=== PATIENT | male | born 1975 | race Caucasian/White ===

== ENCOUNTER → 2018-07-10 15:40 | Outpatient (CLI) | payer MEDICAID, SELFPAY ==
[2018-07-09 12:04] LABS: Absolute Neutrophil Count 5.7 X10^3/uL (2.0-7.7); Basophil# 0.04 X10^3/uL; Basophil% 0.4 % (0-1); Eosinophil# 0.13 X10^3/uL; Eosinophils% 1.4 % (0-5); Hematocrit 42.7 % (40-54); Hemoglobin 14.4 g/dl (13.0-16.5); Lymphocyte % 24.4 % (19-41); Mean Corp Hgb Conc 33.7 g/gl (32-36); Mean Corpuscular Hgb 31.3 pg (27.0-32.0); Mean Corpuscular Volume 92.8 fL (80-94); Mean Platelet Vol. 9.6 fl (6.2-12.0); Monocyte# 0.94 X10^3/uL; Monocyte% 10.4 % (0-10); Neutrophil # 5.67 X10^3/uL (2.7-7.7); Neutrophil % 63.2 % (47-70); Platelet Count 219 K/mm3 (150-450); RBC Distribution Width CV 12.9 % (11.6-14.6); RBC Distribution Width SD 43.2 fl (35.1-43.9)
[2018-07-09 12:06] LABS: POSITIVE COUNT NO; POSITIVE DIFFERENTIAL NO; POSITIVE MORPHOLOGY NO
[2018-07-09 12:35] LABS: Anion Gap 8 (5-15); BUN 14 mg/dL (7-18); Chloride 104 mmol/L (98-107); Cholesterol 206 mg/dL (200); Creatinine, Serum 0.98 mg/dL (0.70-1.30); EST Glomerular Filtration Rate 90 mL/min (>60); Est Glom Filt Rate - Afr Amer 109 mL/min (>60); Glucose 88 mg/dL (74-106); High Density Lipoprotein 39 mg/dL; Potassium 4.3 mmol/L (3.5-5.1); Sodium Level 142 mmol/L (136-145); Triglycerides 145 mg/dL; Very Low Density Lipoprotein 29 mg/dL (5-40)
[2018-07-12 14:07] LABS: B. henselae IgG Negative titer (Neg:<1:320); B. henselae IgM Negative titer (Neg:<1:100); B. quintana IgG Negative titer (Neg:<1:320)
[2018-07-13 09:12] LABS: B. quintana IgM Negative titer (Neg:<1:100)
== END ==
PROVIDERS: Family Provider Nurse Practitioner Family; PCP Nurse Practitioner Family; Visit Provider Ophthalmology
DX: H47.10 Unspecified papilledema (principal)
CPT/HCPCS: 36415; 70553; 80051; 80061; 82565; 82947; 84520; 85025; 86611; A9585

== ENCOUNTER → 2018-11-20 10:36 | Outpatient (CLI) | payer MEDICAID, SELFPAY ==
[2016-01-12 09:06] VITALS: BMI 37.3
--- NOTE | 2018-11-20 10:55 | RAD_ITS ---
STUDY: X-RAY CHEST REASON FOR EXAM: Male, 43 years old. Pre-op TECHNIQUE: PA and lateral views of the chest. COMPARISON: None. FINDINGS: The lungs are clear and expanded. There is no demonstrated pleural abnormality. Normal size heart. Normal mediastinum and mehdi. Normal visualized pulmonary arteries. Normal visualized aortic arch and descending thoracic aorta. Normal visualized thoracic spine. Normal visualized ribs, clavicles, and shoulders. There is no demonstrated abnormality of the visualized soft tissue structures of the upper abdomen. RAD/Chest PA and Lateral IMPRESSION: Normal x-ray examination of the chest. Electronically Signed: Nick Golden MD at 22:23 EST , Service support ,
--- NOTE | 2018-11-20 11:02 | EKG12_ITS ---
Test Reason : PREOP Blood Pressure : / mmHG Vent. Rate : 075 BPM Atrial Rate : 075 BPM P-R Int : 134 ms QRS Dur : 100 ms QT Int : 398 ms P-R-T Axes : 060 030 070 degrees QTc Int : 444 ms Sinus rhythm with sinus arrhythmia with occasional Premature ventricular complexes Otherwise normal ECG Confirmed by ERIN HOWARD, QUITA ([id number]), features editor SAE IRWIN ([id number]) on 11/21/2018 3:56:53 PM Referred By: Abram Cardoso Confirmed By:QUITA KHAN MD
[2018-11-20 11:37] LABS: Absolute Lymphocyte Count 2.23 X10^3/ul (0.83-4.51); Absolute Neutrophil Count 4.6 X10^3/uL (2.0-7.7); Basophil# 0.05 X10^3/uL; Basophil% 0.6 % (0-1); Eosinophil# 0.58 X10^3/uL; Eosinophils% 7.1 % (0-5); Hematocrit 47.4 % (40-54); Hemoglobin 16.4 g/dl (13.0-16.5); Lymphocyte # 2.23 X10^3/ul (4.0); Lymphocyte % 27.3 % (19-41); Mean Corp Hgb Conc 34.6 g/gl (32-36); Mean Corpuscular Hgb 31.8 pg (27.0-32.0); Mean Corpuscular Volume 91.9 fL (80-94); Mean Platelet Vol. 10.9 fl (6.2-12.0); Monocyte# 0.66 X10^3/uL; Monocyte% 8.1 % (0-10); Neutrophil # 4.62 X10^3/uL (2.7-7.7); Neutrophil % 56.7 % (47-70); POSITIVE COUNT NO; POSITIVE DIFFERENTIAL NO; POSITIVE MORPHOLOGY NO; Platelet Count 205 K/mm3 (150-450); RBC Distribution Width CV 12.9 % (11.6-14.6); RBC Distribution Width SD 42.7 fl (35.1-43.9); Red Blood Count 5.16 M/mm3 (4.6-6.2); White Blood Count 8.2 K/mm3 (4.4-11.0)
[2018-11-20 12:20] LABS: ALB/GLOB Ratio 1.1 RATIO (0.9-2.4); AST(SGOT) 14 U/L (15-37); Alanine Aminotransfer ALT/SGPT 29 U/L (16-61); Albumin, Serum 4.1 g/dL (3.2-5.0); Alkaline Phosphatase 66 U/L (45-117); Anion Gap 5 (5-15); BUN 14 mg/dL (7-18); BUN/Creat Ratio 14.3 RATIO (10-20); Calcium,Total 8.8 mg/dL (8.5-10.1); Chloride 105 mmol/L (98-107); Creatinine, Serum 0.98 mg/dL (0.70-1.30); EST Glomerular Filtration Rate 90 mL/min (>60); Est Glom Filt Rate - Afr Amer 109 mL/min (>60); Globulin 3.9 g/dL (2.2-4.2); Glucose 92 mg/dL (74-106); Potassium 4.3 mmol/L (3.5-5.1); Sodium Level 140 mmol/L (136-145)
--- OUTSIDE RECORDS SUMMARY | 2019-01-25 05:51 | XMS RPT_ITS ---
:1975 External Reference #:[id number] Author Organization OH[facility] Care Team Providers Name Role Phone Jean Pike Attending Unavailable Jean Pike Referring Unavailable Omar Munoz TIMBER INSPECTOR-C Primary Care Unavailable Pilo Cardoso Attending Unavailable Pilo Cardoso Referring Unavailable Omar Munoz TIMBER INSPECTOR-C Primary Care Unavailable LEIGHTON ANTOINE Referring Unavailable LEIGHTON ANTOINE Attending Unavailable PILO CARDOSO A Attending Unavailable PCP, NONE Referring Unavailable RAISA CARDOSOY A Attending Unavailable TALHA, PILO A Referring Unavailable TALHA, PILO A Admitting Unavailable TALHA PILO A Attending Unavailable PROBLEMS PROBLEMS DATE TYPE CONDITION / CODE ATTENDING STATUS SOURCE 11/15/2018 Unknown Incomplete rotator PILO CARDOSO Active [facility] cuff tear or [facility] rupture of right System shoulder, not Repository specified as traumatic / M75.111(ICD-10) 11/14/2018 Unknown Pain in right PILO CARDOSO Active [facility] shoulder / [facility] M25.511(ICD-10) System Repository 11/14/2018 Unknown Encounter for other PILO CARDOSO Active [facility] preprocedural [facility] examination / System Z01.818(ICD-10) Repository 11/11/2018 Active Pain, unspecified / NA Active [facility] R52(ICD-10) Other [place] Repository PROCEDURES PROCEDURES No Procedure Records FoundRESULTS RESULTS 12 LEAD ELECTROCARDIOGRAM Observed: 11/21/2018 Status: F Source: [place] 3:57 PM [facility] Cardiovascular Services [address] [place] [address] 12 Lead EKG 11/20/18 1108 MR#: [id number] Acct: [id number] Name: ESTEFANIA SURESH Rep #: [id number] : 1975 43 From: Piotr Khan MD Attending Dr: Pilo Cardoso DO Status: REG CLI Ordering Dr: Pilo Cardoso DO Date: 11/20/18 Location: LAB Sex: M C Admitted: Test Reason : PREOP Blood Pressure : / mmHG Vent. Rate : 075 BPM Atrial Rate : 075 BPM P-R Int : 134 ms QRS Dur : 100 ms QT Int : 398 ms P-R-T Axes : 060 030 070 degrees QTc Int : 444 ms Sinus rhythm with sinus arrhythmia with occasional Premature ventricular complexes Otherwise normal ECG Confirmed by ERIN HOWARD, PIOTR ([id number]), telegraph editor SAE IRWIN ([id number]) on 11/21/2018 3:56:53 PM Referred By: Pilo Cardoso Confirmed By:PIOTR KHAN MD 11/21/18 1556 Date Piotr Khan MD CC: TIMBER INSPECTOR-C Omar Munoz; Pilo Cardoso DO Signed CHEST PA AND LATERAL Observed: 11/20/2018 Status: F Source: [place] 10:51 AM [facility] Imaging Services [address] [place] [address] Chest PA and Lateral MR#: [id number] Acct: [id number] Name: ESTEFANIA SURESH Rep #: [id number] : 1975 M 43 From: Nick Golden MD PCP: Omar Munoz, TIMBER INSPECTOR-C Status: REG CLI Study: Chest PA and Lateral Date of Exam: 11/20/18 Exam# [id number] Ordering Dr: Pilo Cardoso DO STUDY: X-RAY CHEST REASON FOR EXAM: Male, 43 years old. Pre-op TECHNIQUE: PA and lateral views of the chest. COMPARISON: None. FINDINGS: The lungs are clear and expanded. There is no demonstrated pleural abnormality. Normal size heart. Normal mediastinum and mehdi. Normal visualized pulmonary arteries. Normal visualized aortic arch and descending thoracic aorta. Normal visualized thoracic spine. Normal visualized ribs, clavicles, and shoulders. There is no demonstrated abnormality of the visualized soft tissue structures of the upper abdomen. RAD/Chest PA and Lateral IMPRESSION: Normal x-ray examination of the chest. Electronically Signed: Nick Golden MD at 22:23 EST , Service support , CC: JASON Munoz; Pilo Cardoso DO Plumbing Assembler Installer: Signed CBC W/DIFF, AUTOMATED Collected: 11/20/2018 Status: F Source: [place] 10:43 AM [facility] REPOSITORY TYPE CODE TESTS RESULT OUT OF RANGE REFERENCE UNITS LAB L100.1000 4.4-11.0 K/mm3 Normal WBC 8.2 LAB L100.1200 4.6-6.2 M/mm3 Normal RBC 5.16 LAB L100.1300 13.0-16.5 g/dl Normal HGB 16.4 LAB L100.1400 40-54 % Normal HCT 47.4 LAB L100.1500 80-94 fL Normal MCV 91.9 LAB L100.1600 27.0-32.0 pg Normal MCH 31.8 LAB L100.1700 32-36 g/gl Normal MCHC 34.6 LAB L100.1810 11.6-14.6 % Normal RDW CV 12.9 LAB L100.1820 35.1-43.9 fl Normal RDW SD 42.7 LAB L100.1900 150-450 K/mm3 Normal PLT 205 LAB L100.2000 6.2-12.0 fl Normal MPV 10.9 LAB L100.2100 47-70 % Normal NEUT% 56.7 LAB L100.2200 19-41 % Normal LY% 27.3 LAB L100.2300 0-10 % Normal MONO% 8.1 LAB L100.2400 0-5 % High EO% 7.1 LAB L100.2500 0-1 % Normal BASO% 0.6 LAB L100.2550 0.0-0.9 % Normal IM GRAN % 0.200 Result Comment: IG% - Immature Granulocytes (promyelocytes, myelocytes and metamyelocytes) > 1% indicates that a LEFT SHIFT is Present. LAB L100.2620 2.0-7.7 X10 3/uL Normal Absolute Neut 4.6 LAB L100.2720 0.83-4.51 X10 3/ul Normal Absolute Lymph 2.23 Performed By: #### L100.0100 #### [facility] [address] [place], [address] COMPREHENSIVE METABOLIC Collected: 11/20/2018 Status: F Source: [facility] 10:43 AM [facility] REPOSITORY TYPE CODE TESTS RESULT OUT OF RANGE REFERENCE UNITS LAB L501.0100 74-106 mg/dL Normal GLU 92 Result Comment: Please note revised GLUCOSE reference range effective 2017. LAB L501.1000 7-18 mg/dL Normal BUN 14 LAB L501.1100 0.70-1.30 mg/dL Normal CREAT,SERUM 0.98 Result Comment: The validity of the calculated GFR AND GFRAA in patients over 70 years has not been determined. Clinical correlation is essential. LAB L501.1110 >60 mL/min Normal EST GFR 90 Result Comment: Non- GFR Calc LAB L501.1115 >60 mL/min Normal EST GFR - AA 109 Result Comment: GFR Calc LAB L501.1300 10-20 RATIO Normal BUN/CRE 14.3 LAB L501.1500 6.4-8.2 g/dL T Normal PROT 8.0 LAB L501.1800 3.2-5.0 g/dL Normal ALB 4.1 LAB L501.1950 2.2-4.2 g/dL Normal GLOB 3.9 LAB L501.2000 0.9-2.4 RATIO Normal A/G 1.1 LAB L501.2200 8.5-10.1 mg/dL CA Normal 8.8 LAB L501.4100 15-37 U/L Low AST 14 LAB L501.4305 45-117 U/L Normal ALK P 66 LAB L501.4405 16-61 U/L Normal ALT 29 LAB L501.4600 0.20-1.00 mg/dL T Normal BILI 0.60 LAB L501.5300 136-145 mmol/L NA Normal 140 LAB L501.5600 3.5-5.1 mmol/L K Normal 4.3 LAB L501.5900 98-107 mmol/L CL Normal 105 LAB L501.6100 21.0-32.0 mmol/L Normal CO2 30.0 LAB L501.6200 5-15 Normal GAP 5 Performed By: #### L500.4050 #### [facility] [address] [place], [address] XR SHOULDER RIGHT MIN Observed: 11/14/2018 Status: F Source: [facility] 2 VIEWS (ROUTINE) 10:42 AM [facility] EXAMINATION: FOUR XRAY VIEWS OF THE RIGHT SHOULDER 11/14/2018 10:42 am COMPARISON: None. HISTORY: Pain in right shoulder: Right shoulder pain FINDINGS: Glenohumeral joint is normally aligned. No evidence of acute fracture or dislocation. No abnormal periarticular calcifications. The AC joint is unremarkable in appearance. Visualized lung is unremarkable. IMPRESSION: No acute abnormality. PROGRESS Observed: 11/11/2018 Status: COMPLETED Source: [place] 3:05 PM [facility] [place] REPOSITORY HNO ID: [id number] Author: Leighton Antoine Service: (none) Author Type: Physician Type: Progress Notes Filed: 11/11/2018 3:09 PM Note Text: ORTHOPEDIC CONSULT Leighton Antoine MD [facility] Department of Orthopedics Consultation requested by Dr. Felisa Driver MD for an opinion regarding right shoulder pain and weakness. My final recommendations will be communicated back to the requesting physician by way of shared medical record or letter via US mail 43-year-old male here today regarding right shoulder pain it's been going on now for the last 2 years. He was initially managed by an outside orthopedic group and referred here for definitive care. He underwent MRI examination in February 2018. Findings were consistent with a near full-thickness rotator cuff tear. The patient received 3 cortisone injections the last of which was June. He's not done any physical therapy. Reviewing the patient was being considered for surgery but the insurance coverage changed the patient was referred here. 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 Current Outpatient Prescriptions: omeprazole (PRILOSEC) 20 mg capsule TAKE ONE CAPSULE BY MOUTH ONCE DAILY varenicline (CHANTIX CONTINUING MONTH BOX) 1 mg tablet Take 1 tablet by mouth twice daily. ranitidine (ZANTAC) 75 mg tablet Take 75 mg by mouth twice daily as needed. No current facility-administered medications for this visit. There is no problem list on file for this patient. No past surgical history on file. PAST MEDICAL HISTORY Diagnosis Date - Tendinitis FAMILY HISTORY Problem Relation Age of Onset - Diabetes Mother - other (grave's disease) Mother Social History Substance Use Topics - Smoking status: Current Every Day Smoker Packs/day: 1.00 Years: 23.00 - Smokeless tobacco: Former User - Alcohol use Yes Comment: rarely ALLERGIES Allergen Reactions - Banana Hives - Kiwi Hives REVIEW OF SYSTEMS General: NO fever, NO chills, NO night sweats Constitutional:NO recent unwanted weight loss, NO excessive weight Skin: NO rashes, NO chronic skin condition Head: NO seizures, NO headaches, NO dizziness Respiratory: NO cough Cardiovascular: NO chest pain Gastrointestinal: NO nausea, NO vomiting, NO abdominal painEndocrine: NO thyroid problems, NO heat intolerance Musculoskeletal: see HPI Neurologic: no numbness or tingling in extremities Examination: 43-year-old male no acute distress. Alert and oriented times 3. 5 foot 10 inches tall 260 pounds. Patient is active forward elevation active abduction is full only limited by pain. The acromial clavicular joint is nontender. Positive Neer sign a markedly positive Sosa test. Jobes maneuver is positive for pain only but no weakness. Radiologic review: Unfortunately the CD provided by the patient would not open on her system. Interpretation is consistent with a small full-thickness tear of the supraspinatous in the anterior aspect. All other tendons and other structures were noted to be normal. Clinical impression: Right shoulder probable small full-thickness rotator cuff tear. Patient wishes to proceed with surgical intervention. He's also been instructed to obtain a disc that will open on her system or provide the MRI images on films I may review them prior to surgery. We discussed the risks, benefits, goals, expectations, outcomes, and complications including nerve injury and vascular injury as well as the possibility of failure of the surgical procedure to remedy the complaint. All the patient's questions were answered to their satisfaction. Consents were then signed. This note was partially generated using [employer] voice recognition system and as such may contain grammatical or word errors CNOV Observed: 11/11/2018 Status: COMPLETED Source: [place] 1:30 PM [facility] REPOSITORY Office Visit (ORMDNA) ESTEFANIA SURESH ([id number]) 1975 M Date Time Provider Department 11/11/18 1:30 PM LEIGHTON ANTOINE During your visit today, we recorded the following information about you: Weight Height 117.5 kg 1.791 m Leighton Antoine MD FACS 11/11/2018 3:09 PM Signed ORTHOPEDIC CONSULT Leighton Antoine MD, FACS Department of Orthopedics Consultation requested by Dr. Felisa Driver MD for an opinion regarding right shoulder pain and weakness. My final recommendations will be communicated back to the requesting physician by way of shared medical record or letter via US mail 43-year-old male here today regarding right shoulder pain it's been going on now for the last 2 years. He was initially managed by an outside orthopedic group and referred here for definitive care. He underwent MRI examination in February 2018. Findings were consistent with a near full-thickness rotator cuff tear. The patient received 3 cortisone injections the last of which was June. He's not done any physical therapy. Reviewing the patient was being considered for surgery but the insurance coverage changed the patient was referred here. 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 Current Outpatient Prescriptions: omeprazole (PRILOSEC) 20 mg capsule TAKE ONE CAPSULE BY MOUTH ONCE DAILY varenicline (CHANTIX CONTINUING MONTH BOX) 1 mg tablet Take 1 tablet by mouth twice daily. ranitidine (ZANTAC) 75 mg tablet Take 75 mg by mouth twice daily as needed. No current facility-administered medications for this visit. There is no problem list on file for this patient. No past surgical history on file. PAST MEDICAL HISTORY Diagnosis Date - Tendinitis FAMILY HISTORY Problem Relation Age of Onset - Diabetes Mother - other (grave's disease) Mother Social History Substance Use Topics - Smoking status: Current Every Day Smoker Packs/day: 1.00 Years: 23.00 - Smokeless tobacco: Former User - Alcohol use Yes Comment: rarely ALLERGIES Allergen Reactions - Banana Hives - Kiwi Hives REVIEW OF SYSTEMS General: NO fever, NO chills, NO night sweats Constitutional:NO recent unwanted weight loss, NO excessive weight Skin: NO rashes, NO chronic skin condition Head: NO seizures, NO headaches, NO dizziness Respiratory: NO cough Cardiovascular: NO chest pain Gastrointestinal: NO nausea, NO vomiting, NO abdominal painEndocrine: NO thyroid problems, NO heat intolerance Musculoskeletal: see HPI Neurologic: no numbness or tingling in extremities Examination: 43-year-old male no acute distress. Alert and oriented times 3. 5 foot 10 inches tall 260 pounds. Patient is active forward elevation active abduction is full only limited by pain. The acromial clavicular joint is nontender. Positive Neer sign a markedly positive Sosa test. Jobes maneuver is positive for pain only but no weakness. Radiologic review: Unfortunately the CD provided by the patient would not open on her system. Interpretation is consistent with a small full- thickness tear of the supraspinatous in the anterior aspect. All other tendons and other structures were noted to be normal. Clinical impression: Right shoulder probable small full-thickness rotator cuff tear. Patient wishes to proceed with surgical intervention. He's also been instructed to obtain a disc that will open on her system or provide the MRI images on films I may review them prior to surgery. We discussed the risks, benefits, goals, expectations, outcomes, and complications including nerve injury and vascular injury as well as the possibility of failure of the surgical procedure to remedy the complaint. All the patient's questions were answered to their satisfaction. Consents were then signed. This note was partially generated using [employer] voice recognition system and as such may contain grammatical or word errors Referring Provider: SELF [200] Allergies As of Date: 11/11/2018 Noted Allergy Reaction BANANA 12/07/2015 4 - Hives KIWI 12/07/2015 4 - Hives Date Reviewed: 11/11/2018 Reviewed by: Leighton Antoine - Fully Assessed Reason for Visit: New Patient [172] Right Shoulder Pain [Other] Primary Visit Diagnosis:Incomplete tear of right rotator cuff [M75.111] Prescriptions as of 11/11/2018 Sig: OMEPRAZOLE 20 MG CAPSULE,JAYDON* TAKE ONE CAPSULE BY MOUTH ONC* MELOXICAM 15 MG TABLET Take 1 tablet by mouth once d* VARENICLINE 1 MG TABLET Take 1 tablet by mouth twice * RANITIDINE 75 MG TABLET Take 75 mg by mouth twice marianna* Problem List As Of Date: 11/11/2018 (None) Encounter Status:Closed by LEIGHTON ANTOINE MD, FACS on 11/11/18 BRAIN W/WO CONTRAST Observed: 07/10/2018 Status: F Source: [place] 3:44 PM [facility] Imaging Services [address] [place] [address] Brain W/WO Contrast MR#: [id number] Acct: [id number] Name: ESTEFANIA SURESH Rep #: [id number] : 1975 M 43 From: Jose Frye MD PCP: Omar Munoz, TIMBER INSPECTOR-Kennedy Status: REG CLI Study: Brain W/WO Contrast Date of Exam: 07/10/18 Exam# [id number] Ordering Dr: Jean Pike MD STUDY: MRI BRAIN WITH AND WITHOUT CONTRAST REASON FOR EXAM: Male, 43 years old. Swollen right optic nerve TECHNIQUE: Standardized multiplanar fat and water weighted pulse sequences were obtained. 11ml ml of Gadavist contrast material was administered intravenously for the contrast portion of the examination. COMPARISON: None. FINDINGS: Normal size of the ventricles and extra-axial spaces for the patient's age. Normal white matter tracts of the supratentorial brain. Normal bilateral basal ganglia. Normal thalami. There is no extra-axial fluid accumulation. Normal flow voids within the major intracranial circulation suggesting patency by spin echo criteria. Normal venous enhancement. There is no enhancing intra-axial or extra-axial abnormality. Normal sella turcica, pituitary gland, infundibular stalk, optic chiasm and hypothalamus. Normal tectal plate and pineal gland. Normal midbrain, shruti and medulla. Normal cerebellum. Normal basal cisterns. Normal bilateral temporal bones. Normal bilateral internal auditory canals. No demonstrated orbital abnormality, within the constraints of a routine brain study. There is minor mucosal thickening within the ethmoid air cells.. Normal calvarium and skull base. Normal visualized soft tissue structures. Normal visualized upper cervical spine. MRI/Brain W/WO Contrast IMPRESSION: Normal unenhanced and enhanced MRI of the brain. No evidence for focal optic neuritis or enhancing lesion within the optic nerves Minor bilateral ethmoid sinus disease Electronically Signed: Jose Frye MD at 18:09 EDT , Service support , CC: JASON Munoz; Jean Pike MD Plumbing Assembler Installer: Signed CBC W/DIFF, AUTOMATED Collected: 07/09/2018 Status: F Source: [place] 11:30 AM [facility] REPOSITORY TYPE CODE TESTS RESULT OUT OF RANGE REFERENCE UNITS LAB L100.1000 4.4-11.0 K/mm3 Normal WBC 9.0 LAB L100.1200 4.6-6.2 M/mm3 Normal RBC 4.60 LAB L100.1300 13.0-16.5 g/dl Normal HGB 14.4 LAB L100.1400 40-54 % Normal HCT 42.7 LAB L100.1500 80-94 fL Normal MCV 92.8 LAB L100.1600 27.0-32.0 pg Normal MCH 31.3 LAB L100.1700 32-36 g/gl Normal MCHC 33.7 LAB L100.1810 11.6-14.6 % Normal RDW CV 12.9 LAB L100.1820 35.1-43.9 fl Normal RDW SD 43.2 LAB L100.1900 150-450 K/mm3 Normal PLT 219 LAB L100.2000 6.2-12.0 fl Normal MPV 9.6 LAB L100.2100 47-70 % Normal NEUT% 63.2 LAB L100.2200 19-41 % Normal LY% 24.4 LAB L100.2300 0-10 % High MONO% 10.4 LAB L100.2400 0-5 % Normal EO% 1.4 LAB L100.2500 0-1 % Normal BASO% 0.4 LAB L100.2550 0.0-0.9 % Normal IM GRAN % 0.200 Result Comment: IG% - Immature Granulocytes (promyelocytes, myelocytes and metamyelocytes) > 1% indicates that a LEFT SHIFT is Present. LAB L100.2620 2.0-7.7 X10 3/uL Normal Absolute Neut 5.7 LAB L100.2720 0.83-4.51 X10 3/ul Normal Absolute Lymph 2.20 Performed By: #### L100.0100 #### [facility] [address] [place], [address] LIPID PROFILE Collected: 07/09/2018 Status: F Source: [place] 11:30 AM [facility] REPOSITORY TYPE CODE TESTS RESULT OUT OF RANGE REFERENCE UNITS LAB L501.4900 200 mg/dL High CHOL 206 Result Comment: <200 mg/dL Desirable 200-240 mg/dL Borderline >240 mg/dL High Risk LAB L501.5000 mg/dL Normal TRIG 145 Result Comment: The drugs N-Acetylcysteine and Metamizole may falsely depress this assay. Serum Triglycerides Reference Interval Normal <150 mg/dL Borderline high 150 - 199 mg/dL High 200 - 499 mg/dL Very High > or = 500 mg/dL LAB L501.6400 mg/dL Low HDL 39 Result Comment: The drugs N-Acetylcysteine and Metamizole may falsely depress this assay. Reference Range HDL <40 mg/dL Low HDL Cholesterol HDL >or= 60 mg/dL High HDL Cholesterol LAB L501.6500 0-130 mg/dL High LDL 138 LAB L501.6600 5-40 mg/dL Normal VLDL 29 Performed By: #### L500.4100, L501.0100, L501.1000, L501.1105, L501.5294 #### [facility] [address] [place], [address] GLUCOSE Collected: 07/09/2018 Status: F Source: [place] 11:30 AM [facility] REPOSITORY TYPE CODE TESTS RESULT OUT OF RANGE REFERENCE UNITS LAB L501.0100 74-106 mg/dL Normal GLU 88 Result Comment: Please note revised GLUCOSE reference range effective 2017. Performed By: #### L500.4100, L501.0100, L501.1000, L501.1105, L501.5294 #### [facility] [address] [place], [address] BUN Collected: 07/09/2018 Status: F Source: [place] 11:30 AM [facility] REPOSITORY TYPE CODE TESTS RESULT OUT OF RANGE REFERENCE UNITS LAB L501.1000 7-18 mg/dL Normal BUN 14 Performed By: #### L500.4100, L501.0100, L501.1000, L501.1105, L501.5294 #### [facility] [address] [place], [place], [address] SERUM CREATININE AND Collected: 07/09/2018 Status: F Source: [place] GFR 11:30 AM [facility] REPOSITORY TYPE CODE TESTS RESULT OUT OF RANGE REFERENCE UNITS LAB L501.1100 0.70-1.30 mg/dL Normal 0.98 CREAT,SERUM Result Comment: The validity of the calculated GFR AND GFRAA in patients over 70 years has not been determined. Clinical correlation is essential. LAB L501.1110 >60 mL/min Normal EST GFR 90 Result Comment: Non- GFR Calc LAB L501.1115 >60 mL/min Normal EST GFR - AA 109 Result Comment: GFR Calc Performed By: #### L500.4100, L501.0100, L501.1000, L501.1105, L501.5294 #### [facility] [address] [place], [address] ELECTROLYTE PANEL Collected: 07/09/2018 Status: F Source: [place] 11:30 AM [facility] REPOSITORY TYPE CODE TESTS RESULT OUT OF RANGE REFERENCE UNITS LAB L501.5300 136-145 mmol/L Normal NA 142 LAB L501.5600 3.5-5.1 mmol/L Normal K 4.3 LAB L501.5900 98-107 mmol/L Normal CL 104 LAB L501.6100 21.0-32.0 mmol/L Normal CO2 30.0 LAB L501.6200 5-15 Normal GAP 8 Performed By: #### L500.4100, L501.0100, L501.1000, L501.1105, L501.5294 #### [facility] [address] [place], [place], [address] CAT SCRATCH DISEASE Collected: 07/09/2018 Status: F Source: [place] 11:30 AM [facility] REPOSITORY TYPE CODE TESTS RESULT OUT OF RANGE REFERENCE UNITS LAB L7100.0200 Neg:<1:320 titer Normal Negative B.henselae IgG LAB L7100.0300 Neg:<1:100 titer Normal Negative B.henselae IgM LAB L7100.0400 Neg:<1:320 titer Normal Negative B.saenz IgG LAB L7100.0500 Neg:<1:100 titer Normal Negative B.saenz IgM Result Comment: Note: Bartonella henselae is now regarded as the etiologic agent of Cat Scratch Disease, bacillary angiomatosis, endocarditis and fever with bacteremia. Bartonella saenz also causes bacillary angiomatosis particularly among immunocompromised patients, and trench fever. This test was developed and its performance characteristics determined by [employer] ([employer]). It has not been cleared or approved by the Food and Drug Administration. The FDA has determined that such clearance or approval is not necessary. Performed at: [address] [id number] Municipal Clerk: Tio Fitch MD, Phone: [phone] Performed By: #### L7100.0100 #### [facility] (refer to report for specific site) refer to report for address and phone number ALLERGIES ALLERGIES DATE TYPE / CODE NAME / CODE REACTION SEVERITY SOURCE 01/12/2016 Drug banana/[id number] Unknown Unknown [facility] Allergy/4160 877(RXNORM) Hospital [address]807(SNOMED Repository CT) 01/12/2016 Drug kiwi/[id number] Hives Unknown [facility] Allergy/4160 8(RXNORM) Hospital [address]481(SNOMED Repository CT) 12/07/2015 DRUG BANANA HIVES [facility] INGREDI/4195 Other [place] [address](SNOMED Repository CT) 12/07/2015 DRUG KIWI HIVES [facility] INGREDI/4195 Other [place] [address]94(SNOMED Repository CT) ENCOUNTERS ENCOUNTERS ADMIT/DISCHARGE ACCOUNT NUMBER ADMITTING ENCOUNTER LOCATION SOURCE CLASS 11/29/2018/11/29/19 [id number] [facility] Ambulatory Building:[address] Room: [facility] HealthCare POOL System ROOMBed: Repository NONE 11/20/[id number] [facility] ding:LAB Repository 11/14/2018 [id number] [address] [place] [address] HealthCare System Repository 11/14/2018/11/14/19 [id number] [facility] [place] [address] [facility] Repository 11/11/2018/11/12/19 [id number] Ambulatory [address] Main [place] Repository 11/11/2018 [id number] Ambulatory [facility] Other [place] Repository 07/10/[id number] [facility] ding:MRI Repository PAYERS PAYERS ENCOUNTER GUARANTOR PAYER SUBSCRIBER SOURCE 11/29/2018 ESTEFANIA GONZALEZB: Primary ESTEFANIA GONZALEZB: [facility] Insurance:[facility] [id number] [place] [address] aman Number: [place], [place] [id number] [place], [place] Repository [address]Ivz: ([phone]) Date: 58614Jxu: () [phone] () 11/20/2018 ESTEFANIA ARBOLEDA Primary ESTEFANIA GONZALEZB: Maite LEWIS Insurance:[employer] [id number] Number: [facility] [address]Kym: 330 [id number] Repository [phone] () Date:2018-11-20 [address]ATTN: [place] [address]WM: 11/20/2018 Secondary NOT GIVENUNK [place] Insurance:SELF PAY [facility]: Effective Repository Date:2018-11-20 11/14/2018 ESTEFANIA GONZALEZB: Primary ESTEFANIA GONZALEZB: [facility] Insurance:[employer] [id number] [facility]Care [facility] olicy Number: [facility] [place] [id number] [place] Repository [address]Jec: [phone]) Date: [id number]: (HP) [phone] (HP) 11/14/2018 ESTEFANIA GONZALEZB: Primary ESTEFANIA SURESHDOB: [facility] Insurance:[employer] [id number] HealthCare JENT[facility] olicy Number: [facility] [place] [id number] [place] Repository [address]Zwt: [phone]) Date: [address]Tdh: (HP) [phone] (HP) 07/10/2018 ESTEFANIA ARBOLEDA Primary ESTEFANIA GONZALEZB: Maite JENSRINIVAS Insurance:[employer] [id number] [facility] [place] Number: [facility] [id number]: ([phone] [id number] Repository [phone] (HP) Date:2018-07-09[address]ATTN: [place] [address]BC: 07/10/2018 Secondary NOT GIVENUNK [place] Insurance:SELF PAY [facility] Number: Effective Repository Date:2018-07-09
== END ==
PROVIDERS: Family Provider Nurse Practitioner Family; PCP Nurse Practitioner Family; Referring Provider Orthopaedic Surgery; Visit Provider Orthopaedic Surgery
DX: Z01.818 Encounter for other preprocedural examination (principal); M25.511 Pain in right shoulder
CPT/HCPCS: 36415; 71046; 80053; 85025; 93005

== ENCOUNTER 2019-02-17 13:00 | Outpatient (RCR) | payer MEDICAID, SELFPAY ==
--- NOTE | 2018-12-03 14:44 | HP.PTEVAL_ITS ---
Patient's Visit Information ESTEFANIA SURESH is a 43 year old M referred to Physical Therapy by Abram Cardoso DO with a diagnosis of S/P RIGHT ROTATOR CUFF REPAIR AND BICEPS TENODESIS. Date of Evaluation: 12/03/18 Physical Therapist: Sherry Tena PT, Cert MDT - Visit Plan Frequency: 2-3x /Week Duration: 4-6 Weeks Plan: RIGHT UE ROM, STRETCHING AND STRENGTHENING PER ROTATOR CUFF REPAIR WITH BICEPS TENODESIS PROTOCOL. - Subjective Findings: Diagnosis: INCOMPLETE TEAR OF THE RIGHT ROTATOR CUFF WITH SURGICAL REPAIR 11/29/[address] ABRAM CARDOSO IN [place]. PATIENT REPORTS HE ALSO HAD HIS BICEPS REPAIRED. Work/Leisure: [employer]. HAS NOT WORKED SINCE NOV 01 2018 DUE TO LAY OFF. TENTATIVE RTW DATE FEBRUARY 17 2019. Disability: NO. Present symptoms: RIGHT SHOULDER AND BICEP PAIN. VERY SLIGHT TINGLING IN RIGHT THUMB PAD - TINGLING IS IMPROVING. HE REPORTS THE TINGLING HAS LOCALIZED TO HIS RIGHT THUMB PAD AREA NOW BUT WAS MORE WIDE SPRIDE INITIALLY. NECK PAIN RECENT YESTERDAY - NOT TYPICAL AND GONE NOW. STATES HE THINKS IT MIGHT HAVE COME FROM HOW HE WAS SLEEPING. Present since: ABOUT 18 MONTH AGO. Pain Scale: Worst - 9/10 Least - 3/10. Currently: 10. Commenced as a result of: NO APPARENT REASON OTHER THAN SLAM DUNKING A BASKETBALL WITH SON. HE REPORTS IT WAS HURTING SOME BEFORE THAT TOO BUT HE THINKS THAT IS WHEN HE MIGHT HAVE FINISHED IT OFF. Symptoms at onset: RIGHT SHOULDER. Worse: MOVING. Better: NOT MOVING, ICE, OXICODONE, FLEXERIL, ASPIRIN, TYLONOL. Disturbed sleep: YES. Previous history/Previous treatment: CORTISONE SHOTS RIGHT SHOULDER. NO PT. Dizziness: NO. Tinnitis: NO. Nausea: YES. Shortness of Breath: NO. Difficulty Swollowing: NO. Gait: NORMAL. Accidents: NO. Unexplained weight loss: NO. Imaging: RIGHT SHOULDER X-RAYS AND MRI BEFORE SURGERY. PMH/Recent major surgery: UNREMARKABLE. PLOF (Prior Level of Function): UNLIMITED 18 MOHTHS AGO - Objective THIS PATIENT AMBULATES INDEP'LY INTO PT WEARING A RIGHT ABDUCTOR SLING. HIS FIANCE IS PRESENT THROUGHOUT THE SESSION. SHE HELPS HIM DON AND DOFF THE SLING. RIGHT UE LIGHT TOUCH SENSATION IS INTACT AND SYMMETRICAL EXCEPT THE PAD OF RIGHT THUMB. INCISIONS NOT VISUALIZED BUT PATIENT AND PATIENTS FIANCE REPORT THE INCISIONS ARE DOING GREAT AND THEY KNOW WHAT TO LOOK FOR IN TERMS OF SIGNS OF INFECTION. RIGHT ELBOW AND FOREARM PROM AND HAND AROM ARE WFL. RIGHT SHOULDER PASSIVE FLEXION TO APPROX 50 DEG WITH PENDULUM. TREATMENT: PATIENT WAS INSTRUCTED IN PROPER POSTURE CONTROL AND USE OF LUMBAR SUPPORT IN SITTING. EDUCATED PATIENT ON NO AROM OR RIGHT SHOULDER AND COPY OF BICEPS TENODESIS PROTOCOL GIVEN. INITIATED PASSIVE PENDULUM EX CW AND CCW ALONG WITH PASSIVE RIGHT ELBOW FLEXION AND FOREARM PRONATION AND SUPINATION. ALSO INSTRUCTED PATIENT IN AROM OF RIGHT WRIST/HAND AND BALL SQUEEZES WELL NO COMPUTER FOR 4 WEEKS. INSTRUCTED PATIENT IN HOME EX PROGRAM EVERY TWO TO THREE HOURS TOLERATED AVOIDING INCREASING PAIN. PATIENT DEMONSTRATED AND COMMUNICATED A GOOD UNDERSTANDING OF ALL INSTRUCTIONS AFTER GIVEN. - Goals Goal 1:: DECREASE C/O RIGHT SHOULDER PAIN Goal Time Frame: 4-6 Weeks Goal 2:: IMPROVE RIGHT UE FUNCTIONAL ROM Goal Time Frame: 4-6 Weeks Goal 3:: IMPROVE RIGHT UE FUNCTIONAL STRENGTH Goal Time Frame: 4-6 Weeks Goal 4:: INDEP HEP Goal Time Frame: 4-6 Weeks - Rehabilitation Potential Rehabilitation Potential: Good - Anticipated Interventions Patient/Client Instruction: Educate patient on: Condition, Plan of Care, Risk Factors, Benefits of Fitness Program For the Purpose of:: To improve self management Therapeutic Exercise to Include: Strength training, Postural training, Flexibilty training, Passive ROM, Active ROM, Scapular Strength/Stabilization For the Purpose of:: To increase ROM, To improve muscle performance and motor function, To increase tolerance to activity/condition/position, To improve ability of physical actions for home/community/work/leisure Manual Therapy Techniques to Include: Mobilization Comment: PER PROTOCOL For the Purpose of:: To decrease pain, To increase ROM Cryotherapy (ice pack, ice massage): Yes For the Purpose of:: To decrease pain, To decrease swelling/inflammation Thank you for the opportunity to evaluate your patient. For Medicare and Medicare HMO plans, please review the plan of care and approve it. It will need to be FAXED BACK to us at [phone] for Medicare purposes. For Medicare only, by signing this I certify the plan of care. Please let me know if there are questions or concerns regarding this plan of care. Physician Signature: _Date:
--- NOTE | 2019-01-10 10:40 | HP.PTREVAL ---
Abram Cardoso, DO, It has been my pleasure to treat ESTEFANIA SURESH over the last 13 visits for S/P RIGHT ROTATOR CUFF REPAIR AND BICEPS TENODESIS. Please see the progress note below for an update on the physical therapy plan of care! Subjective: PATIENT REPORTS HE FEELS LIKE REHAB IS GOING REALLY WELL. NO CONCERNS AT THIS TIME. PATIENT REPORTS HE IS DOING HIS HEP TOLERTED. NO SLING FOR ABOUT A WEEK UNLESS HE GOES OUT OR SLEEPING INSTRUCTED BY DOCTOR. NO TYLONOL TODAY. RIGHT SHOULDER SORE AND REALLY TIGHT (POINTING TO RIGHT UPPER TRAP) YESTERDAY. FOLLOW UP WITH DR. CARDOSO SUNDAY. Objective/Function: PATIENT IS PROGRESSING NICELY. HE IS ON A HOME EX PROGRAM AND HIS PAIN APPEARS UNDER CONTROL. RIGHT SHOULDER AROM SEATED: FLEX 108 DEG. ABD 137 DEG. PROM SUPINE: FLEX 156 DEG. IR 50 DEG. ER 62 DEG. IR/ER MEASURED WITH 80 DEG ABD. QUICK DASH SCORE HAS IMPROVED FROM 46 TO 24. Plan Plan: GIVE WRITTEN HEP. NO EXCESSIVE BICEPS LOADING FOR 2 MORE WEEKS (JANUARY 24). NO ISOLATED BICEPS ACTIVATION WITH ELBOW FLEXION OR STRAIGHT ARM RESISTED FLEXION/SUPINATION FOR 2 MORE WEEKS. MANUAL THERAPY FOR STM/SCAR MOBILIZATION NEEDED. CP NEEDED FOR PAIN AND INFLAMMATION. PO WEEKS 6-8: CONTINUE PROM TO AROM OF SHOULDER AND ELBOW, GAINING MUSCLE ENDURANCE WITH HIGH REPS, LOW RESISTANCE. ISOTONIC IR AND ER LIGHT RESISTANCE RESISTED MOVEMENT WITH WRIST IN NEURTRAL (NO SUPINATION). SUPINE ABC AND SA PUNCHES WITH HIGH REPS, LOW RESISTANCE. WEEK 7 BEGIN PRONE SCAPULAR STABILITY PROGRAM. SEE PROTOCAL FOR FURTHER PROGRESSION WEEKS 8-12 APPROPRIATE. RECOMMEND CONTINUED PT 2X'S A WEEK X 2 WEEKS THEN DECREASE TO 1X/WEEK X 3 WEEKS TO HELP PATIENT SUCCESSFULLY TRANSITION TO INDEP HEP AND BACK TO WORK. PATIENT IS AGREEABLE. Goals Goal 1:: DECREASE C/O RIGHT SHOULDER PAIN Goal Time Frame: 4-6 Weeks Goal Progress: Progressing Goal 2:: IMPROVE RIGHT UE FUNCTIONAL ROM Goal Time Frame: 4-6 Weeks Goal Progress: Progressing Goal 3:: IMPROVE RIGHT UE FUNCTIONAL STRENGTH Goal Time Frame: 4-6 Weeks Goal Progress: Progressing Goal 4:: INDEP HEP Goal Time Frame: 4-6 Weeks Anticipated Interventions Patient/Client Instruction: Educate patient on: Condition, Plan of Care, Risk Factors, Benefits of Fitness Program For the Purpose of:: To improve self management Therapeutic Exercise to Include: Strength training, Postural training, Flexibilty training, Passive ROM, Active ROM, Scapular Strength/Stabilization For the Purpose of:: To increase ROM, To improve muscle performance and motor function, To increase tolerance to activity/condition/position, To improve ability of physical actions for home/community/work/leisure Manual Therapy Techniques to Include: Mobilization Comment: PER PROTOCOL For the Purpose of:: To decrease pain, To increase ROM Cryotherapy (ice pack, ice massage): Yes For the Purpose of:: To decrease pain, To decrease swelling/inflammation Please do not hesitate to contact me at [phone] by phone or if you have questions or concerns regarding this new plan of care! Sincerely, Sherry Tena, PT, Cert MDT
--- NOTE | 2019-02-17 13:26 | HP.PTDCSUM ---
HP - PT D/C Summary It has been my pleasure to treat ESTEFANIA SURESH under orders from Abram Cardoso DO, for the diagnosis of S/P RIGHT ROTATOR CUFF REPAIR AND BICEPS TENODESIS for a total of 21 visit(s). Discharge Date: 02/17/19 Please see the following information for a summary of their discharge status. - Subjective Subjective: PATIENT REPORTS HE JUST FEELS SORENESS WHEN HE RAISES HIS RIGHT ARM UP OVER HIS HEAD. STATES HE FEELS READY TO RETURN TO WORK. REPORTS COMPLIANCE WITH HEP. PATIENT REPORTS FLEETING SORENESS AND TIGHTNESS WITH CERTAIN REACHING MOTIONS BUT NOT REALLY PAIN. PATIENT REPORTS DR. CARDOSO RELEASED HIM TO GO BACK TO WORK TODAY THE WITHOUT ANY RESTRICTIONS BUT TAKING AN EXTRA WEEK OFF WITH THE KIDS ON spring. - Pain Right Shoulder Pain Intensity (Out of 10): 0 - Overall Improvement % Improvement: 90 - Objective Objective/Function: PATIENT HAS PROGRESSED NICELY WITH PHYSICAL THERAPY. HE IS ALMOST PAINFREE AND ON A HEP. RIGHT SHOULDER AROM SEATED: FLEX 165 DEG. ABD FULL. PROM SUPINE: FLEX 170DEG. IR 57 DEG. ER 90 DEG. IR/ER MEASURED WITH 90 DEG ABD. QUICK DASH SCORE HAS IMPROVED FROM 46 TO 24 AND NOW 16. - Goals Goal 1:: DECREASE C/O RIGHT SHOULDER PAIN Goal Progress: Goal Met Goal 2:: IMPROVE RIGHT UE FUNCTIONAL ROM Goal Progress: Goal Met Goal 3:: IMPROVE RIGHT UE FUNCTIONAL STRENGTH Goal Progress: Goal Met Goal 4:: INDEP HEP Goal Progress: Goal Met - Plan Plan: D/C TO HEP. PATIENT AGREEABLE. - D/C Information If there are questions or concerns regarding this patient's physical therapy, please feel free to call me at [phone]. Thank you for the referral of this patient. Sincerely, Sherry Tena, PT, Cert MDT
== END 2019-02-17 15:27 | disposition home or self-care (01) ==
LOC: PT 13:00
PROVIDERS: Family Provider Nurse Practitioner Family; PCP Nurse Practitioner Family; Visit Provider Orthopaedic Surgery
DX: M75.111 Incomplete rotator cuff tear or rupture of right shoulder, not specified as traumatic (principal)
CPT/HCPCS: 97110; 97140; 97161; 97530

== ENCOUNTER → 2020-05-17 16:29 | Outpatient (CLI) | payer MEDICAID, SELFPAY ==
[2016-01-12 09:06] VITALS: BMI 37.3
[2020-05-17 17:22] LABS: Hematocrit 44.2 % (40-54); Hemoglobin 15.3 g/dL (13.0-16.5); Mean Corp Hgb Conc 34.6 g/dL (32-36); Mean Corpuscular Hgb 32.9 pg (27.0-32.0); Mean Corpuscular Volume 95.1 fL (80-94); Mean Platelet Vol. 10.5 fl (6.2-12.0); Platelet Count 185 K/mm3 (150-450); RBC Distribution Width SD 44.4 fl (35.1-43.9); Red Blood Count 4.65 M/mm3 (4.6-6.2); White Blood Count 10.1 K/mm3 (4.4-11.0)
[2020-05-17 18:04] LABS: ALB/GLOB Ratio 0.9 RATIO (0.9-2.4); AST(SGOT) 47 U/L (15-37); Alanine Aminotransfer ALT/SGPT 94 U/L (16-61); Albumin, Serum 3.8 g/dL (3.2-5.0); Alkaline Phosphatase 62 U/L (45-117); Anion Gap 5 (5-15); BUN 15 mg/dL (7-18); BUN/Creat Ratio 16.2 RATIO (10-20); Calcium,Total 8.5 mg/dL (8.5-10.1); Chloride 106 mmol/L (98-107); Cholesterol 251 mg/dL (200); Creatinine, Serum 0.93 mg/dL (0.70-1.30); EST Glomerular Filtration Rate 95 mL/min (>60); Est Glom Filt Rate - Afr Amer 115 mL/min (>60); Free T3 2.7 pg/mL (2.18-3.98); Globulin 4.1 g/dL (2.2-4.2); Glucose 89 mg/dL (74-106); High Density Lipoprotein 39 mg/dL; Protein, Total 7.9 g/dL (6.4-8.2); Sodium Level 138 mmol/L (136-145); T4 Free Direct 1.05 ng/dL (0.76-1.46); Thyroid Stim Hormone (TSH) 2.93 uIU/mL (0.358-3.74); Triglycerides 303 mg/dL; Very Low Density Lipoprotein 61 mg/dL (5-40)
[2020-05-19 14:08] LABS: Thyroid Peroxidase AB 15 IU/mL (0-34)
[2020-05-20 01:53] LABS: Thyroglobulin Antibody < 1.0 IU/mL (0.0-0.9)
== END ==
PROVIDERS: PCP Nurse Practitioner Family; Referring Provider Nurse Practitioner Family; Visit Provider Nurse Practitioner Family
DX: R39.198 Other difficulties with micturition (principal); R68.89 Other general symptoms and signs; L74.9 Eccrine sweat disorder, unspecified; Z13.220 Encounter for screening for lipoid disorders; Z13.1 Encounter for screening for diabetes mellitus
CPT/HCPCS: 36415; 80053; 80061; 84439; 84443; 84481; 85027; 86376; 86800

== ENCOUNTER → 2020-07-02 09:07 | Outpatient (CLI) | payer MEDICAID, SELFPAY ==
[2016-01-12 09:06] VITALS: BMI 37.3
[2020-07-02 10:23] LABS: ALB/GLOB Ratio 0.9 RATIO (0.9-2.4); AST(SGOT) 36 U/L (15-37); Alanine Aminotransfer ALT/SGPT 78 U/L (16-61); Albumin, Serum 3.7 g/dL (3.2-5.0); Alkaline Phosphatase 64 U/L (45-117); Anion Gap 6 (5-15); BUN 20 mg/dL (7-18); BUN/Creat Ratio 19.6 RATIO (10-20); Calcium,Total 8.4 mg/dL (8.5-10.1); Chloride 106 mmol/L (98-107); Cholesterol 192 mg/dL (200); Creatinine, Serum 1.02 mg/dL (0.70-1.30); EST Glomerular Filtration Rate 85 mL/min (>60); Est Glom Filt Rate - Afr Amer 103 mL/min (>60); Glucose 136 mg/dL (74-106); High Density Lipoprotein 40 mg/dL; PTHIN 72.1 pg/mL (18.4-80.1); Potassium 4.4 mmol/L (3.5-5.1); Protein, Total 7.7 g/dL (6.4-8.2); Sodium Level 139 mmol/L (136-145); Triglycerides 356 mg/dL; Very Low Density Lipoprotein 71 mg/dL (5-40)
== END ==
PROVIDERS: PCP Nurse Practitioner Family; Referring Provider Nurse Practitioner Family; Visit Provider Nurse Practitioner Family
DX: E78.5 Hyperlipidemia, unspecified (principal); L74.9 Eccrine sweat disorder, unspecified; R68.89 Other general symptoms and signs
CPT/HCPCS: 36415; 80053; 80061; 83970

== ENCOUNTER → 2020-07-03 10:32 | Outpatient (CLI) | payer MEDICAID, SELFPAY ==
[2016-01-12 09:06] VITALS: BMI 37.3
[2020-07-03 11:00] LABS: 24HR. Urine Creatinine 2.45 g/24 HR (0.90-2.10)
[2020-07-07 03:06] LABS: Metanephrine, Ur 52 ug/L (Undefined); Normetanephrines, 24Ur 513 ug/24 hr (156-729); Normetanephrines, Ur 270 ug/L (Undefined)
[2020-07-07 04:40] LABS: Metanephrines, 24Ur 99 ug/24 hr (58-276)
== END ==
PROVIDERS: PCP Nurse Practitioner Family; Referring Provider Nurse Practitioner Family; Visit Provider Nurse Practitioner Family
DX: L74.9 Eccrine sweat disorder, unspecified (principal); R68.89 Other general symptoms and signs
CPT/HCPCS: 81050; 82570; 83835

== ENCOUNTER → 2020-07-09 13:42 | Outpatient (CLI) | payer MEDICAID, SELFPAY ==
[2016-01-12 09:06] VITALS: BMI 37.3
--- NOTE | 2020-07-09 13:43 | ECHOD_ITS ---
Reason For Study: PALPITATIONS Procedure This was a 2D Doppler, Color Flow transthoracic echocardiogram. Exam performed in department. Left Ventricle Normal LV size. The estimated ejection fraction is 60 %. No evidence for diastolic dysfunction. No regional wall motion abnormalities noted. Right Ventricle Normal RV size. Normal systolic function. Atria Normal left atrium. Normal right atrium. No doppler evidence for ASD. Bubble contrast study negative for right to left interatrial shunt. Atrial septal aneurysm noted. Mitral Valve There is no mitral valve stenosis. No mitral valve insufficiency. Tricuspid Valve There is no tricuspid stenosis. No tricuspid valve insufficiency. Unable to estimate RV systolic pressure due to insufficient tricuspid regurgitant envelope. Aortic Valve Trisinus/trileaflet aortic valve. There is no aortic stenosis. No aortic valve insufficiency. Pulmonic Valve There is no pulmonic valvular stenosis. No pulmonic valve insufficiency. Great Vessels Normal aortic root. Pericardium/Pleural No pericardial effusion. Medication 22 gauge I.V. with prn adaptor inserted into right arm. Performed a rapid injection of agitated mix of 9 cc saline and 1cc air to assess for atrial septal defect. MMode/2D Measurements & Calculations LVIDd: 5.3 cm IVSd: 0.92 cm Ao root diam: 3.4 cm LVIDs: 3.4 cm LVPWd: 1.00 cm RVDd: 3.4 cm FS: 35.9 % LAV(MOD-bp): 34.7 ml LVAd ap4: 33.4 cm2 SV(MOD-sp4): 70.6 ml LAV(MOD-bp) Indexed: 14.4 ml/m2 EDV(MOD-sp4): 118.8 ml LAV(MOD-sp2): 32.1 ml EDV(sp4-el): 120.5 ml LAV(MOD-sp4): 37.3 ml LVAs ap4: 19.1 cm2 ESV(MOD-sp4): 48.2 ml ESV(sp4-el): 46.0 ml EF(MOD-sp4): 59.4 % EF(sp4-el): 61.9 % SV(sp4-el): 74.6 ml LA A4 area: 15.2 cm2 LA dimension(2D): 3.7 cm RA A4 area: 15.0 cm2 Time Measurements MV dec time: 0.20 sec Doppler Measurements & Calculations MV E max axel: 78.8 cm/sec Lat Peak E' Axel: 14.2 cm/sec Med Peak E' Axel: 8.6 cm/sec MV A max axel: 63.0 cm/sec E/E' lat: 5.5 E/E' med: 9.1 MV E/A: 1.2 Ao V2 max: 128.1 cm/sec LV V1 max: 92.5 cm/sec PA V2 max: 119.2 cm/sec Ao max P.6 mmHg LV V1 max P.4 mmHg TR max axel: 255.2 cm/sec TR max P.0 mmHg Interpretation Summary The estimated ejection fraction is 60 %. No evidence for diastolic dysfunction. Ordering Physician: Omar Munoz Referring Physician: Omar Munoz Performed By: Delicia Menendez RDCS
== END ==
PROVIDERS: PCP Nurse Practitioner Family; Referring Provider Nurse Practitioner Family; Visit Provider Nurse Practitioner Family
DX: R01.1 Cardiac murmur, unspecified (principal)
CPT/HCPCS: 93306; A4216

== ENCOUNTER → 2020-09-25 09:56 | Outpatient (CLI) | payer MEDICAID, SELFPAY ==
[2016-01-12 09:06] VITALS: BMI 37.3
[2020-09-25 10:39] LABS: ALB/GLOB Ratio 1.1 RATIO (0.9-2.4); AST(SGOT) 25 U/L (15-37); Alanine Aminotransfer ALT/SGPT 76 U/L (16-61); Albumin, Serum 3.8 g/dL (3.2-5.0); Alkaline Phosphatase 66 U/L (45-117); Anion Gap 3 (5-15); BUN 20 mg/dL (7-18); BUN/Creat Ratio 21.4 RATIO (10-20); Calcium,Total 8.5 mg/dL (8.5-10.1); Chloride 107 mmol/L (98-107); Cholesterol 178 mg/dL (200); Creatinine, Serum 0.94 mg/dL (0.70-1.30); EST Glomerular Filtration Rate 94 mL/min (>60); Est Glom Filt Rate - Afr Amer 113 mL/min (>60); Globulin 3.6 g/dL (2.2-4.2); Glucose 114 mg/dL (74-106); High Density Lipoprotein 39 mg/dL; Potassium 4.2 mmol/L (3.5-5.1); Protein, Total 7.4 g/dL (6.4-8.2); Sodium Level 138 mmol/L (136-145); Triglycerides 211 mg/dL; Very Low Density Lipoprotein 42 mg/dL (5-40)
== END ==
PROVIDERS: PCP Nurse Practitioner Family; Referring Provider Nurse Practitioner Family; Visit Provider Nurse Practitioner Family
DX: E78.5 Hyperlipidemia, unspecified (principal)
CPT/HCPCS: 36415; 80053; 80061

== ENCOUNTER → 2021-03-25 10:25 | Outpatient (CLI) | payer MEDICAID, SELFPAY ==
[2021-03-25 11:07] LABS: Hematocrit 48.3 % (40-54); Hemoglobin 16.9 g/dL (13.0-16.5); Mean Corpuscular Hgb 32.7 pg (27.0-32.0); Mean Corpuscular Volume 93.4 fL (80-94); Mean Platelet Vol. 11.1 fl (6.2-12.0); Platelet Count 200 K/mm3 (150-450); RBC Distribution Width CV 12.4 % (11.6-14.6); RBC Distribution Width SD 42.8 fl (35.1-43.9); Red Blood Count 5.17 M/mm3 (4.6-6.2); White Blood Count 7.1 K/mm3 (4.4-11.0)
[2021-03-25 11:44] LABS: ALB/GLOB Ratio 0.8 RATIO (0.9-2.4); AST(SGOT) 158 U/L (15-37); Alanine Aminotransfer ALT/SGPT 193 U/L (16-61); Albumin, Serum 4.1 g/dL (3.2-5.0); Alkaline Phosphatase 113 U/L (45-117); Anion Gap 5 (5-15); BUN 16 mg/dL (7-18); BUN/Creat Ratio 15.4 RATIO (10-20); Calcium,Total 9.4 mg/dL (8.5-10.1); Chloride 99 mmol/L (98-107); Cholesterol 288 mg/dL (200); Creatinine, Serum 1.04 mg/dL (0.70-1.30); EST Glomerular Filtration Rate 83 mL/min (>60); Est Glom Filt Rate - Afr Amer 100 mL/min (>60); Globulin 4.9 g/dL (2.2-4.2); Glucose 291 mg/dL (74-106); High Density Lipoprotein 26 mg/dL; Potassium 4.5 mmol/L (3.5-5.1); Sodium Level 134 mmol/L (136-145); Triglycerides 487 mg/dL
== END ==
PROVIDERS: PCP Nurse Practitioner Family; Referring Provider Nurse Practitioner Family; Visit Provider Nurse Practitioner Family
DX: E78.5 Hyperlipidemia, unspecified (principal); R73.01 Impaired fasting glucose; R79.89 Other specified abnormal findings of blood chemistry
CPT/HCPCS: 36415; 80053; 80061; 85027

== ENCOUNTER → 2021-05-11 09:42 | Outpatient (CLI) | payer MEDICAID, SELFPAY ==
[2016-01-12 09:06] VITALS: BMI 37.3
[2021-05-11 11:06] LABS: Amylase 41 U/L (25-115); GGTP 158 U/L (15-85); Lipase 158 U/L (73-393)
[2021-05-11 11:45] LABS: Hepatitis C Antibody Non-Reactive (Nonreactive); Insulin 18.9 mU/L (2.6-37.6)
[2021-05-12 16:09] LABS: Hepatitis Be Ag Negative (Negative)
[2021-05-13 09:24] LABS: C-Peptide 4.4 ng/mL (1.1-4.4); Hepatitis Be Ab Negative (Negative)
== END ==
PROVIDERS: PCP Nurse Practitioner Family; Referring Provider Nurse Practitioner Family; Visit Provider Nurse Practitioner Family
DX: R79.89 Other specified abnormal findings of blood chemistry (principal)
CPT/HCPCS: 36415; 82150; 82977; 83525; 83690; 84681; 86707; 86803; 87350

== ENCOUNTER 2021-11-25 09:03 | Outpatient (CLI) | payer MEDICAID, SELFPAY ==
[2021-11-25 11:22] LABS: AST(SGOT) 24 U/L (15-37); Alanine Aminotransfer ALT/SGPT 44 U/L (16-61); Alkaline Phosphatase 61 U/L (45-117); Anion Gap 4 (5-15); BUN 17 mg/dL (7-18); BUN/Creat Ratio 18.2 RATIO (10-20); Calcium,Total 9.2 mg/dL (8.5-10.1); Chloride 106 mmol/L (98-107); Cholesterol 229 mg/dL (200); Creatinine, Serum 0.93 mg/dL (0.70-1.30); EST Glomerular Filtration Rate 93 mL/min (>60); Est Glom Filt Rate - Afr Amer 113 mL/min (>60); GGTP 47 U/L (15-85); Globulin 4.2 g/dL (2.2-4.2); Glucose 103 mg/dL (74-106); High Density Lipoprotein 42 mg/dL; Potassium 4.4 mmol/L (3.5-5.1); Protein, Total 8.2 g/dL (6.4-8.2); Sodium Level 139 mmol/L (136-145); Triglycerides 98 mg/dL; Very Low Density Lipoprotein 20 mg/dL (5-40)
== END 2021-11-25 23:59 | disposition short-term general hospital (02) ==
LOC: LAB 09:07
PROVIDERS: PCP Nurse Practitioner Family; Referring Provider Nurse Practitioner Family; Visit Provider Nurse Practitioner Family
DX: E11.9 Type 2 diabetes mellitus without complications (principal); K76.0 Fatty (change of) liver, not elsewhere classified; R79.89 Other specified abnormal findings of blood chemistry; R74.8 Abnormal levels of other serum enzymes
CPT/HCPCS: 36415; 80053; 80061; 82977; 83036

== ENCOUNTER → 2022-06-12 | Outpatient (CLI) | payer MEDICAID, SELFPAY ==
[2022-06-12 08:02] LABS: ALB/GLOB Ratio 0.9 RATIO (0.9-2.4); AST(SGOT) 32 U/L (15-37); Alanine Aminotransfer ALT/SGPT 51 U/L (16-61); Albumin, Serum 3.8 g/dL (3.2-5.0); Alkaline Phosphatase 63 U/L (45-117); Anion Gap 5 (5-15); BUN 13 mg/dL (7-18); BUN/Creat Ratio 12.6 RATIO (10-20); Calcium,Total 8.9 mg/dL (8.5-10.1); Chloride 105 mmol/L (98-107); Cholesterol 145 mg/dL (200); Creatinine, Serum 1.03 mg/dL (0.70-1.30); EST Glomerular Filtration Rate 83 mL/min (>60); Est Glom Filt Rate - Afr Amer 101 mL/min (>60); Globulin 4.1 g/dL (2.2-4.2); Glucose 123 mg/dL (74-106); High Density Lipoprotein 44 mg/dL; Potassium 3.8 mmol/L (3.5-5.1); Protein, Total 7.9 g/dL (6.4-8.2); Sodium Level 140 mmol/L (136-145); Triglycerides 331 mg/dL; Very Low Density Lipoprotein 66 mg/dL (5-40)
[2022-06-12 08:06] LABS: Hemoglobin A1c 6.3 % (3.8-5.6)
== END | disposition home or self-care (01) ==
LOC: LAB 06:57
PROVIDERS: PCP Nurse Practitioner Family; Referring Provider Nurse Practitioner Family; Visit Provider Nurse Practitioner Family
DX: E11.9 Type 2 diabetes mellitus without complications (principal); E78.5 Hyperlipidemia, unspecified; R79.89 Other specified abnormal findings of blood chemistry
CPT/HCPCS: 36415; 80053; 80061; 83036

== ENCOUNTER → 2023-02-26 | Outpatient (CLI) | payer MEDICAID, SELFPAY ==
[2023-02-26 07:57] LABS: ALB/GLOB Ratio 0.9 RATIO (0.9-2.4); AST(SGOT) 17 U/L (15-37); Alanine Aminotransfer ALT/SGPT 37 U/L (16-61); Albumin, Serum 3.7 g/dL (3.2-5.0); Alkaline Phosphatase 68 U/L (45-117); Anion Gap 4 (5-15); BUN 17 mg/dL (7-18); BUN/Creat Ratio 17.8 RATIO (10-20); Calcium,Total 8.9 mg/dL (8.5-10.1); Chloride 104 mmol/L (98-107); Cholesterol 172 mg/dL (200); Creatinine, Serum 0.95 mg/dL (0.70-1.30); EST Glomerular Filtration Rate 91 mL/min (>60); Est Glom Filt Rate - Afr Amer 110 mL/min (>60); Globulin 4.2 g/dL (2.2-4.2); Glucose 143 mg/dL (74-106); High Density Lipoprotein 36 mg/dL; Potassium 4.1 mmol/L (3.5-5.1); Protein, Total 7.9 g/dL (6.4-8.2); Sodium Level 135 mmol/L (136-145); Triglycerides 318 mg/dL; Very Low Density Lipoprotein 64 mg/dL (5-40)
[2023-02-26 08:24] LABS: Hemoglobin A1c 6.2 % (3.8-5.6)
== END | disposition home or self-care (01) ==
LOC: LAB 07:08
PROVIDERS: PCP Nurse Practitioner Family; Referring Provider Nurse Practitioner Family; Visit Provider Nurse Practitioner Family
DX: E11.9 Type 2 diabetes mellitus without complications (principal); E78.5 Hyperlipidemia, unspecified; R79.89 Other specified abnormal findings of blood chemistry; K76.0 Fatty (change of) liver, not elsewhere classified; K21.9 Gastro-esophageal reflux disease without esophagitis
CPT/HCPCS: 36415; 80053; 80061; 83036

== ENCOUNTER → 2023-12-18 | Outpatient (CLI) | payer OTHER, SELFPAY ==
--- OUTSIDE RECORDS SUMMARY | 2023-12-18 11:43 | XMS RPT_ITS | CCD ---
Author Name Unknown Address [id number] [place] [address] Organization [facility] Care Team Providers Care Chef Manager Name Role Phone Di Szymanski DC Unavailable MARK ANTOINE Unavailable Unavailable MARK ANTOINE Unavailable Unavailable TALHA, PILO A Attending Unavailable TALHA, PILO A Referring Unavailable TALHA, PILO A Attending Unavailable TALHA, PILO A Referring Unavailable TALHA, PILO A Attending Unavailable TALHA, PILO A Referring Unavailable TALHA, PILO A Admitting Unavailable TALHA, PILO A Attending Unavailable TALHA, PILO A Attending Unavailable TALHA, PILO A Referring Unavailable TALHA, PILO A Attending Unavailable PCP, NONE Referring Unavailable Di Szymanski DC Unavailable Allergies Allergy Classification Reported Allergen(s) Allergy Type Date of Onset Reaction(s) Facility (2 sources) Banana Extract; Translations: [BANANA] Drug Allergy 6 [facility] Repository (2 sources) KIWI; Translations: [KIWI] Propensity to adverse reactions to drug (disorder) 6 [facility] Repository Medications Completed/Discontinued Medications Medication Drug Class(es) Dates Sig (Normalized) Sig (Original) omeprazole 10 mg oral tablet (4 sources) Proton Pump Inhibitor Start: 06-13-2017 PRILOSEC 10 MG PACK once daily OMEPRAZOLE MAGNESIUM [id number] Di Szymanski DC Problems Active Problems Problem Classification Problem Date Documented Date Episodic/Chronic Esophageal disorders (4 sources) Gastroesophageal reflux disease; Translations: [Gastro-esophageal reflux disease without esophagitis] Onset: 06-13-2017 06-13-2017 Chronic Residual codes; unclassified (1 source) Pain, unspecified; Translations: [Pain, unspecified] Onset: 11-11-2018 Unclassified (4 sources) Carpal tunnel syndrome, bilateral upper limbs; Translations: [Carpal tunnel syndrome, bilateral upper limbs] Onset: 06-13-2017 06-13-2017 Unclassified (1 source) Post-Op Onset: 01-13-2019 Unclassified (1 source) Incomplete rotator cuff tear or rupture of right shoulder, not specified as traumatic Onset: 11-15-2018 Unclassified (1 source) Pain in right shoulder Onset: 11-14-2018 Unclassified (1 source) Encounter for other preprocedural examination Onset: 11-14-2018 Past or Other Problems Problem Classification Problem Date Documented Da te Episodic/Chronic Other bone disease and musculoskeletal deformities (10 sources) Pelvic somatic dysfunction; Translations: [Segmental and somatic dysfunction] Onset: 06-13-2017 06-13-2017 Episodic Other bone disease and musculoskeletal deformities (2 sources) Segmental and somatic dysfunction; Translations: [Segmental and somatic dysfunction of lumbar region] Onset: 06-13-2017 06-13-2017 Episodic Results Test Name Value Interpretation Reference Range Facil ity Encounters Encounter Date Encounter Type Care Provider Facility Start: 01-13-2019 End: 01-13-2019 Patient encounter procedure [facility] Start: 12-24-2018 End: 12-24-2018 Patient encounter procedure [facility] Start: 12-16-2018 End: 12-16-2018 Patient encounter procedure [facility] Start: 11-29-2018 End: 11-29-2018 Patient encounter procedure [facility] Start: 11-14-2018 End: 11-14-2018 Patient encounter procedure [facility] Start: 11-11-2018 End: 11-12-2018 Patient encounter procedure [facility] Procedures Date Procedure Procedure Detail Performing Clinician Start: 06-21-2017 End: 06-25-2017 Chiropractic manipulation Di Szymanski DC Work Phone: Start: 06-13-2017 End: 06-13-2017 X-ray exam of lower spine Di Szymanski DC Work Phone: Plan of Treatment Date Care Activity Detail Author Start: 06-21-2017 End: 06-21-2017 Appointment Appointment [facility] Work Phone: Start: 06-18-2017 End: 06-18-2017 Appointment Appointment [facility] Work Phone: [facility] Work Phone: Payers Date Payer Category Payer Unknown [id number] 2.16. [id number] 1975 Unknown [id number] 2.16. [id number] 1975 Unknown [id number] 2.16. [id number] 1977 Unknown [id number] 2.16. [id number] 1977 Unknown [id number] 2.16. [id number] 1977 Unknown [id number] 2.16. [id number] Unknown [id number] Summary Purpose Family History No Family History Records FoundNo Family History Records FoundNo Family History Records FoundNo Family History Records Found Advance Directives No Advanced Directives Records FoundNo Advanced Directives Records FoundNo Advanced Directives Records FoundNo Advanced Directives Records Found Additional Source Comments (unrecognized sect ion and content) No Status Records FoundNo Status Records FoundNo Status Records FoundNo Status Records Found INFORMATION SOURCE (unrecogn ized section and content) DATE CREATED AUTHOR AUTHOR'S ORGANIZ ATION 11/12/2018 [facility] DATE CREATED AUTHOR AUTHOR'S ORGANIZ ATION 01/14/2019 [facility] DATE CREATED AUTHOR AUTHOR'S ORGANIZ ATION 04/16/2021 [facility] ([place]) FOR RECORDS PERTAINING TO PATIENTS WHO ARE OR HAVE BEEN ENROLLED IN A CHEMICAL DEPENDENCY/SUBSTANCEABUSE PROGRAM, SOME INFORMATION MAY BE OMITTED. This clinical summary was aggregated from multiple sources. Caution should be exercised in using it in the provision of clinical care. This summary normalizes information from multiple sources, and as a consequence, information in this document may materially change the coding, format and clinical context of patient data. In addition, data may be omitted in some cases. CLINICAL DECISIONS SHOULD BE BASED ON THE PRIMARY CLINICAL RECORDS. [facility] [employer] [facility]. provides no warranty or guarantee of the accuracy or completeness of information in this document.
[2023-12-18 12:43] LABS: Absolute Lymphocyte Count 1.72 X10^3/uL (0.83-4.51); Absolute Neutrophil Count 3.5 X10^3/uL (2.0-7.7); Basophil# 0.07 X10^3/uL; Basophil% 1.2 % (0-1); Eosinophil# 0.22 X10^3/uL; Eosinophils% 3.6 % (0-5); Hematocrit 47.8 % (40-54); Hemoglobin 16.3 g/dL (13.0-16.5); Lymphocyte # 1.72 X10^3/ul (0.83-4.51); Lymphocyte % 28.5 % (19-41); Mean Corp Hgb Conc 34.1 g/dL (32-36); Mean Corpuscular Hgb 32.5 pg (27.0-32.0); Mean Corpuscular Volume 95.2 fL (80-94); Mean Platelet Vol. 9.8 fl (6.2-12.0); Monocyte# 0.54 X10^3/uL; Monocyte% 8.9 % (0-10); NRBC Flagged by Analyzer 0 % (0-5); Neutrophil # 3.47 X10^3/uL (2.7-7.7); Neutrophil % 57.5 % (47-70); Platelet Count 190 K/mm3 (150-450); RBC Distribution Width SD 45.2 fl (35.1-43.9); Red Blood Count 5.02 M/mm3 (4.6-6.2)
[2023-12-18 12:45] LABS: Hemoglobin A1c 6.2 % (3.8-5.6)
[2023-12-18 12:50] LABS: ALB/GLOB Ratio 0.9 RATIO (0.9-2.4); AST(SGOT) 25 U/L (15-37); Alanine Aminotransfer ALT/SGPT 35 U/L (16-61); Albumin, Serum 3.8 g/dL (3.2-5.0); Alkaline Phosphatase 71 U/L (45-117); Anion Gap 3 (5-15); BUN 15 mg/dL (7-18); BUN/Creat Ratio 15.9 RATIO (10-20); Chloride 105 mmol/L (98-107); Cholesterol 179 mg/dL (200); Creatinine, Serum 0.94 mg/dL (0.70-1.30); EST Glomerular Filtration Rate 91 mL/min (>60); Est Glom Filt Rate - Afr Amer 111 mL/min (>60); Globulin 4.3 g/dL (2.2-4.2); Glucose 109 mg/dL (74-106); High Density Lipoprotein 58 mg/dL; Potassium 4.5 mmol/L (3.5-5.1); Protein, Total 8.1 g/dL (6.4-8.2); Sodium Level 138 mmol/L (136-145); Thyroid Stim Hormone (TSH) 1.83 uIU/mL (0.358-3.74); Triglycerides 289 mg/dL; Very Low Density Lipoprotein 58 mg/dL (5-40)
== END | disposition home or self-care (01) ==
PROVIDERS: PCP Family Medicine; Referring Provider Family Medicine; Visit Provider Family Medicine
DX: I10 Essential (primary) hypertension (principal); E11.9 Type 2 diabetes mellitus without complications
CPT/HCPCS: 36415; 80053; 80061; 83036; 84443; 85025

== ENCOUNTER → 2025-02-09 | Outpatient (CLI) | payer OTHER, SELFPAY ==
[2025-02-09 11:03] LABS: Absolute Lymphocyte Count 1.96 X10^3/uL (0.83-4.51); Absolute Neutrophil Count 4.6 X10^3/uL (2.0-7.7); Basophil# 0.06 X10^3/uL; Basophil% 0.8 % (0-1); Eosinophil# 0.33 X10^3/uL; Eosinophils% 4.4 % (0-5); Hematocrit 44.6 % (40-54); Hemoglobin 15.5 g/dL (13.0-16.5); Lymphocyte # 1.96 X10^3/ul (0.83-4.51); Lymphocyte % 26.2 % (19-41); Mean Corp Hgb Conc 34.8 g/dL (32-36); Mean Corpuscular Hgb 31.9 pg (27.0-32.0); Mean Corpuscular Volume 91.8 fL (80-94); Mean Platelet Vol. 10.2 fl (6.2-12.0); Monocyte# 0.47 X10^3/uL; Monocyte% 6.3 % (0-10); NRBC Flagged by Analyzer 0 % (0-5); Neutrophil # 4.62 X10^3/uL (2.7-7.7); Neutrophil % 61.8 % (47-70); Platelet Count 209 K/mm3 (150-450); RBC Distribution Width CV 12.1 % (11.6-14.6); RBC Distribution Width SD 40.7 fl (35.1-43.9); Red Blood Count 4.86 M/mm3 (4.6-6.2); White Blood Count 7.5 K/mm3 (4.4-11.0)
[2025-02-09 11:35] LABS: ALB/GLOB Ratio 1.3 RATIO (0.9-2.4); AST(SGOT) 27 U/L (<=37); Alanine Aminotransfer ALT/SGPT 32 U/L (<=46); Albumin, Serum 4.3 g/dL (3.5-5.0); Alkaline Phosphatase 79 U/L (40-129); Anion Gap 14 (5-15); BUN 16 mg/dL (4-19); BUN/Creat Ratio 18.1 RATIO (10-20); Calcium,Total 9.1 mg/dL (7.6-11.0); Carbon Dioxide 23.1 mmol/L (21.0-32.0); Chloride 100 mmol/L (98-108); Cholesterol 160 mg/dL (<=200); Creatinine, Serum 0.89 mg/dL (0.70-1.20); EST Glomerular Filtration Rate 106 (>60); Globulin 3.3 g/dL (2.2-4.2); Glucose 154 mg/dL (70-99); High Density Lipoprotein 42 mg/dL; Low Density Lipoprotein Calc. 47 mg/dL; Potassium 4.3 mmol/L (3.3-5.1); Protein, Total 7.6 g/dL (5.9-8.4); Sodium Level 137 mmol/L (133-145); Total Bilirubin 0.31 mg/dL (0.00-1.30); Triglycerides 356 mg/dL; Very Low Density Lipoprotein 71 mg/dL (5-40); cholesterol:hdl ratio screen 3.86
== END | disposition home or self-care (01) ==
LOC: MFPLAB 09:17
PROVIDERS: PCP Family Medicine; Referring Provider Family Medicine; Visit Provider Family Medicine
DX: I10 Essential (primary) hypertension (principal)
CPT/HCPCS: 36415; 80053; 80061; 85025

== ENCOUNTER → 2025-03-31 | Outpatient (CLI) | payer OTHER, SELFPAY ==
[2025-03-31] MEDS: Zaleplon 5 MG Capsule 10 MG PO (22:00)
== END | disposition home or self-care (01) ==
LOC: SL 20:30
PROVIDERS: PCP Family Medicine; Referring Provider Nurse Practitioner Family; Visit Provider Nurse Practitioner Family
DX: G47.33 Obstructive sleep apnea (adult) (pediatric) (principal)
CPT/HCPCS: 95811

== ENCOUNTER → 2025-04-23 | Outpatient (CLI) | payer OTHER, SELFPAY | END | disposition home or self-care (01) | LOC: SL 09:03 | PROVIDERS: PCP Family Medicine; Referring Provider Nurse Practitioner Family; Visit Provider Nurse Practitioner Family | DX: Z46.89 Encounter for fitting and adjustment of other specified devices (principal) ==